=== PATIENT | female | born 2005 | race Caucasian/White ===

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

== ENCOUNTER 2024-02-08 00:05 | Emergency (ER) | payer OTHER ==
[~2024-02-08] VITALS: Ht 149.9 cm; Wt 92.8 kg
[~2024-02-08 00:05] MED LIST changes: +NITR100C7 PO
[2024-02-08 00:15] VITALS: BP 135/77; PULSE 142; RESP 20; TEMP 102.3; O2SAT 97
[2024-02-08] MEDS: NACL 0.9% 1,000 ML IV ONE (00:55)
[2024-02-08 01:10] LABS: FLU A ANTIGEN negative (NEGATIVE); FLU B ANTIGEN NEGATIVE (NEGATIVE)
[2024-02-08] MEDS: ACETAMINOPHEN EXTRA STRENGTH 500 MG TAB PO ONE (01:11)
[2024-02-08] MEDS ORDERED: ACET500T99 PO (01:47)
[2024-02-08] MEDS ORDERED: IBUP-2213 PO (01:47)
[2024-02-08] MEDS ORDERED: AMOX1TAB8 PO (01:47)
[2024-02-08] MEDS ORDERED: ONDA-188 PO (01:47)
[2024-02-08 01:50] LABS: APPEARANCE,URINE CLEAR (CLEAR); BILIRUBIN,URINE NEGATIVE (NEGATIVE); BLOOD, URINE NEGATIVE (NEGATIVE); COLOR,URINE YELLOW (YELLOW); LEUKOCYTE ESTERASE ,URINE NEGATIVE (NEGATIVE); NITRITE, URINE NEGATIVE (NEGATIVE); PROTEIN,URINE NEGATIVE (NEGATIVE); UGLUCOSE NEGATIVE (NEGATIVE); UROBILINOGEN,URINE 0.2 EU/dL (0.2 - 1)
[2024-02-08 02:05] VITALS: BP 135/77; PULSE 109; RESP 16; TEMP 99.1; O2SAT 99
== END 2024-02-08 02:05 | disposition home or self-care (01) ==
LOC: MED 00:05
DX: B34.9 Viral infection, unspecified (principal); Z20.822 Contact with and (suspected) exposure to COVID-19; J45.909 Unspecified asthma, uncomplicated; Z79.899 Other long term (current) drug therapy
CPT/HCPCS: 71045; 81003; 81025; 82948; 87081; 87426; 87804; 96360; 99284; J7030; Q0092